=== PATIENT | male | born 1965 | race Caucasian/White ===

== ENCOUNTER → 2017-03-17 | Outpatient (CLI) | payer OTHER ==
[~2017-03-17] MED LIST: METHACHOLINE KIT (J7674) INH ONE
--- NOTE | 2017-03-17 14:32 | PFTRPT ---
Tech: Helena GALINDO RRT Age: 51 Sex: Male Race: Height: 69.00 Inches Weight: 279.00 Lbs BSA: 2.38 Diagnosis: R06.02 METHACHOLINE CHALLENGE REPORT: ORDERING PROVIDER: DONNA Marrero DATE OF SERVICE: 03/17/17 INTERPRETATION: The study was of excellent technical quality. Under protocol, methacholine was administered. At a dose of 0.025 mg (0.125 CDUs), a 25% decline in the FEV1 was noted. No PC20 was calculated. Flow rates did return to baseline post bronchodilator administration. IMPRESSION: Positive methacholine challenge study. MTDD
== END ==
LOC: M CARPUL 13:09
PROVIDERS: ATTEND Nurse Practitioner Adult Health
DX: R06.02 Shortness of breath (principal); R94.2 Abnormal results of pulmonary function studies
CPT/HCPCS: 94070; J7674

== ENCOUNTER 2017-08-03 10:37 | Day surgery (SDC) | payer OTHER ==
[2017-08-03] MEDS ORDERED: NS 1,000 ML IV (11:15)
== END 2017-08-03 12:52 | disposition home or self-care (01) ==
LOC: M OPP 10:37
DX: Z12.11 Encounter for screening for malignant neoplasm of colon (principal); K64.0 First degree hemorrhoids; D12.3 Benign neoplasm of transverse colon; I10 Essential (primary) hypertension; E78.5 Hyperlipidemia, unspecified; K21.9 Gastro-esophageal reflux disease without esophagitis; M17.0 Bilateral primary osteoarthritis of knee; F32.9 Major depressive disorder, single episode, unspecified; F43.10 Post-traumatic stress disorder, unspecified; R06.83 Snoring; R06.02 Shortness of breath; G47.9 Sleep disorder, unspecified; Z86.69 Personal history of other diseases of the nervous system and sense organs; Z79.899 Other long term (current) drug therapy; Z99.89 Dependence on other enabling machines and devices
CPT/HCPCS: 45385

== ENCOUNTER 2021-05-07 13:30 | Inpatient (IN) | payer OTHER ==
[~2021-05-07] VITALS: Ht 175.3 cm; Wt 119.3 kg
[~2021-05-07 13:30] MED LIST changes: +ACET1TAB55 PO; +ADVA115A PO; +D 50CAP PO; +IBUP200T46 PO; +LAMO200T3 PO; +LIPI20TA PO; +LISI20TA33 PO; -METHACHOLINE KIT (J7674) INH ONE; +PROAAER10 INH; +REFR0.1D OU; +VENL150C43 PO; +VENL75CA47 PO
[2021-05-07] MEDS ORDERED: QUET50TA4 PO (14:03)
[2021-05-07] MEDS ORDERED: BUSP10TA PO (14:03)
[2021-05-07] MEDS ORDERED: ATOR80TA59 PO (14:03)
[2021-05-07] MEDS ORDERED: SERTRALINE (14:03)
[2021-05-07 15:01] LABS: AMPHETAMINES LEVEL URINE NEGATIVE (NEGATIVE); BARBITURATES URINE NEGATIVE (NEGATIVE); BENZODIAZEPINES URINE NEGATIVE (NEGATIVE); CANNABINOIDS URINE POSITIVE (NEGATIVE); COCAINE METABOLITE URINE NEGATIVE (NEGATIVE); HEMATOCRIT 46.1 % (42.0-52.0); HEMOGLOBIN 15.2 g/dl (13.5-17.5); MEAN CORPUSCULAR HEMOGLOBIN 27.7 pg (27.0-33.0); MEAN CORPUSCULAR VOLUME 84.1 fl (80.0-96.0); METHADONE URINE NEGATIVE (NEGATIVE); OPIATES URINE NEGATIVE (NEGATIVE); PHENCYCLIDINE URINE NEGATIVE (NEGATIVE); PLATELET COUNT, AUTOMATED 241 10^3/uL (150-450); RED BLOOD COUNT 5.48 10^6/uL (4.30-6.10)
--- OUTSIDE RECORDS SUMMARY | 2021-05-07 15:05 | CCD ---
Author Author [facility] Organization [facility] Address Unknown Phone Unavailable Care Team Providers Care Service Loss Control Consultant Name Role Phone Sarahi, Dillan Unavailable Unavailable Sarahi, Dillan Unavailable Unavailable Sarahi, Dillan Unavailable Unavailable Sarahi, Dillan Unavailable Unavailable Sarahi, Dillan Unavailable Unavailable Sarahi, Dillan Unavailable Unavailable Sarahi, Dillan Unavailable Unavailable Sarahi, Dillan Unavailable Unavailable Sarahi, Dillan Unavailable Unavailable Sarahi, Dillan Unavailable Unavailable Sarahi, Dillan Unavailable Unavailable Sarahi, Dillan Unavailable Unavailable Sarahi, Dillan Unavailable Unavailable Sarahi, Dillan Unavailable Unavailable Sarahi, Dillan Unavailable Unavailable Sarahi, Dillan Unavailable Unavailable Sarahi, Dillan Unavailable Unavailable Re-disclosure Warning The records that you are about to access may contain information from federally-assisted alcohol or drug abuse programs. If such information is present, then the following federally mandated warning applies: This information has been disclosed to you from records protected by federal confidentiality rules (42 CFR part 2). The federal rules prohibit you from making any further disclosure of this information unless further disclosure is expressly permitted by the written consent of the person to whom it pertains or as otherwise permitted by 42 CFR part 2. A general authorization for the release of medical or other information is NOT sufficient for this purpose. The Federal rules restrict any use of the information to criminally investigate or prosecute any alcohol or drug abuse patient.The records that you are about to access may contain highly sensitive health information, the redisclosure of which is protected by Article 27-F of the [facility] Public Health law. If you continue you may have access to information: Regarding HIV / AIDS; Provided by facilities licensed or operated by the [facility] Office of Mental Health; or Provided by the [facility] Office for People With Developmental Disabilities. If such information is present, then the following [facility] mandated warning applies: This information has been disclosed to you from confidential records which are protected by state law. State law prohibits you from making any further disclosure of this information without the specific written consent of the person to whom it pertains, or as otherwise permitted by law. Any unauthorized further disclosure in violation of state law may result in a fine or fpc sentence or both. A general authorization for the release of medical or other information is NOT sufficient authorization for further disc losure. Allergies and Adverse Reactions Type Description Substance Reaction Status Data Source(s ) No Known Allergies No Known Allergies [facility] Family History Family Member Name Family Member Gender Family Member Status Date o f Status Description Data Source(s) Unknown Unknown Problem MEDENT ([facility]) Unknown Male Problem MEDENT ([facility]) () - at age 69 Encounters Encounter Providers Location Date Indications Data Source(s ) Outpatient Attender: Dillan Mcclain 0 11:41:04 AM EDT - 03/12/2020 01:59:00 PM EDT [facility] Patient discharged. Medications No Information Insurance Providers Payer name Policy type / Coverage type Policy ID Covered green party ID Covered green party's relationship to sales Policy Sales Plan Information [facility] [id number] [facility] [id number] [facility] ACTIVE DUTY [id number] [facility] HUMANA - O/P [id number] 18 [id number] [employer] [id number] S [id number] N REGIONAL CLAIMS ROSANGELA -O/P [id number] 18 [id number] [place] [address] Commercial [id number] Self [id number] Region 1 [facility] Commercial [id number] Self [id number] ACTIVE DUTY [id number] SP [id number] N REGIONAL CLAIMS ROSANGELA-PHYSICIAN [id number] 18 [id number] [facility] [id number] [facility] Janalakshmi [id number] [facility] [id number] [facility] Janalakshmi [id number] Self [id number] ADMINSTRATION -O/P [id number] 18 [id number] Problems, Conditions, and Diagnoses Code Display Name Description Problem Type Effective Dates Data Source(s) R99 Ill-defined and unknown cause of mortali ty Ill-defined and unknown cause of mortality Diagnosis 03/12/2020 01:59:00 PM EDT [facility] Surgeries/Procedures No Information Results No Information Social History No Information
[2021-05-07 15:12] LABS: ALT/SGPT 38 U/L (12-78); BLOOD UREA NITROGEN 17 MG/DL (7-18); CALCIUM LEVEL 9.5 MG/DL (8.5-10.1); CARBON DIOXIDE LEVEL 27 MEQ/L (21-32); CHLORIDE LEVEL 109 MEQ/L (98-107); CREATININE FOR GFR 1.13 MG/DL (0.70-1.30); GLOMERULAR FILTRATION RATE > 60.0 (>56); GLUCOSE, FASTING 154 MG/DL (70-100); POTASSIUM SERUM 3.6 MEQ/L (3.5-5.1); SODIUM LEVEL 143 MEQ/L (136-145)
[2021-05-07 15:13] LABS: ACETAMINOPHEN LEVEL < 2.0 UG/ML (10.0-30.0); ALBUMIN 4.1 GM/DL (3.2-5.2); BILIRUBIN,DIRECT 0.2 MG/DL (0.0-0.2); BILIRUBIN,TOTAL 0.7 MG/DL (0.2-1.0); ETHYL ALCOHOL (ETHANOL) 0.006 % (0.000-0.010); SALICYLATE LEVEL < 1.7 MG/DL (5.0-30.0); TOTAL PROTEIN 7.3 GM/DL (6.4-8.2)
[2021-05-07] MEDS ORDERED: QUEtiapine FUMARATE 25 MG TAB PO ONE (17:10)
[2021-05-07] MEDS ORDERED: MULT-90 PO (19:15)
[2021-05-07] MEDS ORDERED: HOME MED LIST COMPLETE! XX SCH (19:15)
[2021-05-07] MEDS ORDERED: ZOLO100T PO (19:15)
[2021-05-07] MEDS ORDERED: RA B1TAB2 PO (19:15)
[2021-05-07] MEDS ORDERED: NATU1TAB5 PO (19:15)
[2021-05-07] MEDS ORDERED: MAALOX 30 ML SUSP *UDC PO PRN (22:05)
[2021-05-07] MEDS ORDERED: MOM 30ML SUSPENSION UDC PO PRN (22:05)
--- OUTSIDE RECORDS SUMMARY | 2021-05-07 22:18 | CCD ---
Author Author [facility] Organization [facility] Address Unknown Phone Unavailable Care Team Providers Care Commercial Roofing Estimator Name Role Phone Sarahi, Dillan Unavailable Unavailable [...] is protected by Article 27-F of the [facility] Public Health law. If you continue you may have access to information: Regarding HIV / AIDS; Provided by facilities licensed or operated by the [facility] Office of Mental Health; or Provided by the [facility] Office for People With Developmental Disabilities. If such information is present, then the following [facility] mandated warning applies: This information has been [...] law may result in a fine or mcc sentence or both. A general authorization for the release of medical or other information is NOT sufficient authorization for further disc losure. Allergies and Adverse Reactions Type Description Substance Reaction Status Data Source(s ) No Known Allergies No Known Allergies [facility] Family History Family Member Name Family Member Gender Family Member Status Date o f Status Description Data Source(s) Unknown Unknown Problem MEDENT ([facility]) Unknown Male Problem MEDENT ([facility]) () - at age 69 Encounters Encounter Providers Location Date Indications Data Source(s ) Outpatient Attender: Dillan Mcclain 0 11:41:04 AM EDT - 03/12/2020 01:59:00 PM EDT [facility] Patient discharged. Medications No Information Insurance Providers Payer name Policy type / Coverage type Policy ID Covered democrat ID Covered democrat's relationship to sales Policy Sales Plan Information [facility] [id number] [facility] [id number] [facility] ACTIVE DUTY [id number] [facility] HUMANA - O/P [id number] 18 [id number] [employer] [id number] S [id number] N REGIONAL CLAIMS ROSANGELA -O/P [id number] 18 [id number] [place] [id number] Commercial [id number] Self [id number] Region 1 [facility] Commercial [id number] Self [id number] ACTIVE DUTY [id number] SP [id number] N REGIONAL CLAIMS ROSANGELA-PHYSICIAN [id number] 18 [id number] [facility] [id number] [facility] [employer] [id number] Self [id number] [facility] [id number] [facility] [id number] Self [id number] ADMINSTRATION -O/P [id number] 18 [id number] Problems, Conditions, and Diagnoses Code Display Name Description Problem Type Effective Dates Data Source(s) R99 Ill-defined and unknown cause of mortali ty Ill-defined and unknown cause of mortality Diagnosis 03/12/2020 01:59:00 PM EDT [facility] Surgeries/Procedures No Information Results No Information Social History No Information
[2021-05-07 23:35] VITALS: BP 148/94
[2021-05-08] MEDS: busPIRone 10 MG TAB PO SCH ×3 (00:47→21:02)
[2021-05-08] MEDS ORDERED: QUEtiapine FUMARATE 50MG TAB PO ONE (01:15)
[2021-05-08 06:29] VITALS: BP 142/90
[2021-05-08] MEDS ORDERED: SERTRALINE 100 MG TAB PO SCH (09:00)
[2021-05-08] MEDS ORDERED: lamoTRIgine 100MG TAB PO SCH (09:00)
[2021-05-08] MEDS: VITAMIN D 1,000 INTERNATIONAL UNITS TABLET PO SCH (09:00)
[2021-05-08] MEDS ORDERED: FLUBLOK(EGG FREE)(QUAD)INFLUENZA VACC 0.5ML SYRINGE 18YRS & OLDER IM ONE (09:00)
[2021-05-08] MEDS ORDERED: ATORVASTATIN 20 MG TAB PO SCH (09:00)
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
[2021-05-08] MEDS: MULTIVITAMINS/MINERALS THERAP 1 TAB PO SCH (09:46)
[2021-05-08] MEDS: QUEtiapine FUMARATE 25 MG TAB PO PRN ×2 (10:19→17:54)
[2021-05-08] MEDS: NEPHRO-VIT TAB (NEPHROCAPS) PO SCH (10:19)
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
[2021-05-08] MEDS ORDERED: ALBUTEROL 90 MCG/ACT 8GM HFA INHALER INH PRN (13:50)
[2021-05-08 17:30] VITALS: BP 129/77
[2021-05-08] MEDS: lamoTRIgine 100MG TAB PO SCH (21:02)
[2021-05-08] MEDS: ATORVASTATIN 20 MG TAB PO SCH (21:02)
[2021-05-08] MEDS: QUEtiapine FUMARATE 50MG TAB PO SCH (21:02)
[2021-05-08] MEDS: SERTRALINE HCL 50 MG TAB PO SCH (21:02)
[2021-05-08] MEDS: ARIPiprazole 2 MG TAB PO SCH (21:02)
[2021-05-08] MEDS: traZODone 50 MG TAB PO PRN (21:45)
[2021-05-09 06:02] VITALS: BP 145/71
[2021-05-09] MEDS: MULTIVITAMINS/MINERALS THERAP 1 TAB PO SCH (08:00)
[2021-05-09] MEDS: NEPHRO-VIT TAB (NEPHROCAPS) PO SCH (08:01)
[2021-05-09] MEDS: busPIRone 10 MG TAB PO SCH ×2 (08:03→21:21)
[2021-05-09] MEDS: ACETAMINOPHEN TAB 650MG DOSE (2X325MG) PO PRN (08:03)
[2021-05-09 08:35] LABS: CHOLESTEROL RISK RATIO 3.5 (<5)
[2021-05-09] MEDS: VITAMIN D 1,000 INTERNATIONAL UNITS TABLET PO SCH (09:00)
--- NOTE | 2021-05-09 10:44 | MHIPNPDOC ---
[facility] Progress Note Progress Note DATE OF SERVICE: 05/09/21 HISTORY: Patient is a 55 -year-old , male, with history of complex PTSD, TBI, MDD, BETTE. "It really started when moved brother up to my house Jun 2020, I was sure he was having a psychotic break, stated he had wolves under porch, he was smoking crystal meth so I let him stay with me, he got confrontational with ASD son and kicked him out in January, since then took any voice or agency from me and she let him stay", is currently living with step daughter, , step son, biological son and mother in law and a 5 y/o grand daughter. Says level of disrespect has pushed him to the edge and had a breakdown when drinking with a "combat bao" and returned home to be yelled at. 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 Reports intrusive memories, hypervigilance, avoids sensory stimuli that remind him of [place] and [place], including grilling certain meats. Per PSA report stress has lead to suicidal thoughts of wanting to hang himself or do CO2 poisoning, states not afraid of , but has fear of pain. States has thoughts/fantasies of stopping aggression from neighbor with aggression including fighting, states "was begging him to punch me so I could claim self defense, but I'm smart enough to know to avoid those who piss me off including my neurologist". "It's only based on confrontation", no targets. VITAL SIGNS: See below. Interval: States that he is doing well on his medications, does not report side effects, no acute physical complaints reported, states he is feeling going to groups and learning coping skills to be helpful, states I am doing better, reports he is working on a song but the guitar was broken, asked to have his guitar brought into use he is here for an extended period of time, reports he is has thoughts of ending his marriage stating that is a significant trigger for his anger and pressor symptoms, either have a choice of hurting her or dying, on further clarification endorses hurting her as leaving the relationship emotionally hurting her. States he is try to get things in order and possibly moved in with his son and will go to outpatient at the [facility]. NEW TEST RESULTS: Triglycerides mildly elevated at 161, otherwise lipid panel within normal limits, and she can diet and exercise, diet consult pending CURRENT MEDICATIONS: See below. MENTAL STATUS EXAMINATION: Patient is a 55-year old male, who is in no acute distress, appears somewhat older than stated age, with kothari and glasses, elevated BMI Speech: Is spontaneous, normal rate and rhythm. Language skills are good. Thought processes including: Linear and logical. Thought content: Endorses fleeting suicidal thoughts, denies this morning. Abstract reasoning, and computation: Good. Description of associations: Normal. Description of abnormal or psychotic thoughts: Denies. Judgment: Improving. Insight: Improving Orientation: X4. Recent and remote memory: Intact. Attention span and concentration: Good. Language: Yoruba. Fund of knowledge: Above average based on interview. Mood: "Doing better" affect: Constricted, stable, mildly dysthymic, appropriate DIAGNOSES: PTSD, complex MDD, recurrent, severe Cannabis use ASSESSMENT: Patient continues to be dysthymic, some improvement on medications, reportedly tolerating Abilify well without side effects. Sleep is improved. Endorses working through coping skills in groups as a helpful means to think about conflicts. Resolved about ending his relationship, as it is a significant source of stress. MANAGEMENT PLAN: Continue medications TIME SPENT: 25 minutes. Vital Signs Vital Signs Date Time Temp Pulse Resp B/P (MAP) Pulse Ox O2 Delivery O2 Flow Rate FiO2 05/09/21 06:02 98.4 67 16 145/71 (95) 97 Room Air Laboratory Data 24H Labs Laboratory Tests 2 05/09/21 07:44: Triglycerides Level 161H, Total Cholesterol 161, LDL Cholesterol 83, Non-HDL Cholesterol (LDL + VLDL) 115, Total HDL Cholesterol 46, Cholesterol/HDL Ratio 3.500 Current Medications Current Medications Medications (Trade) Dose Ordered Sig/Stevo Route PRN Reason Start Time Stop Time Status Last Admin Dose Admin Acetaminophen (Tylenol Tab) 650 mg Q6HP PRN PO HEADACHE or MILD DISCOMFORT 05/07/21 22:05 05/09/21 08:03 Al Hydrox/Mg Hydrox/Simethicone (Mylanta) 30 ml Q4HP PRN PO HEARTBURN/INDIGESTION 05/07/21 22:05 Albuterol Sulfate (Proventil, Ventolin Hfa) 2 puff Q4HP PRN INH SHORTNESS OF BREATH 05/08/21 13:50 Aripiprazole (AbiLIFY) 2 mg QHS PO 05/08/21 21:00 05/08/21 21:02 Atorvastatin Calcium (Lipitor) 40 mg DAILY PO 05/08/21 09:00 05/08/21 09:40 DC Atorvastatin Calcium (Lipitor) 40 mg QHS PO 05/08/21 21:00 05/08/21 21:02 Buspirone HCl (Buspar) 20 mg BID PO 05/07/21 21:00 05/09/21 08:03 Home Med (Home Med List Complete!) ASDIRECTED XX 05/07/21 19:15 05/07/21 19:16 DC Hydroxyzine HCl (Atarax) 50 mg Q6HP PRN PO anxiety 05/07/21 22:05 Lamotrigine (LaMICtal) 200 mg DAILY PO 05/08/21 09:00 05/08/21 09:40 DC Lamotrigine (LaMICtal) 200 mg QHS PO 05/08/21 21:00 05/08/21 21:02 Lisinopril (Prinivil) 20 mg DAILY PO 05/08/21 09:00 05/08/21 09:40 DC Lisinopril (Prinivil) 20 mg QHS PO 05/08/21 21:00 05/08/21 21:01 Magnesium Hydroxide (Milk Of Magnesia) 30 ml DAILYPRN PRN PO CONSTIPATION 05/07/21 22:05 Multivitamins (Theragram-M) 1 tab DAILY PO 05/08/21 09:00 05/09/21 08:00 Quetiapine Fumarate (SEROquel) 25 mg QIDP PRN PO ANXIETY/AGITATION 05/08/21 09:25 05/08/21 17:54 Quetiapine Fumarate (SEROquel) 50 mg QHS PO 05/08/21 21:00 05/08/21 21:02 Sertraline HCl (Zoloft) 50 mg QHS PO 05/08/21 21:00 05/08/21 21:02 Sertraline HCl (Zoloft) 100 mg DAILY PO 05/08/21 09:00 05/08/21 09:26 DC Trazodone HCl (Desyrel) 50 mg QHSP PRN PO INSOMNIA 05/07/21 22:05 05/08/21 21:45 Vitamin B Complex/ Vit C/Folic Acid (Nephro-Philip Rx) 1 tab DAILY PO 05/08/21 09:00 05/09/21 08:01 Vitamin D (Vitamin D) 5,000 units DAILY PO 05/08/21 09:00 Allergies Coded Allergies: No Known Allergies (Unverified , 05/07/21) ARIS ARRIAGA MD May 09, 2021 10:44
[2021-05-09] MEDS: QUEtiapine FUMARATE 25 MG TAB PO PRN (15:33)
[2021-05-09 17:53] VITALS: BP 144/92
[2021-05-09] MEDS: ARIPiprazole 2 MG TAB PO SCH (21:20)
[2021-05-09] MEDS: ATORVASTATIN 20 MG TAB PO SCH (21:21)
[2021-05-09] MEDS: SERTRALINE HCL 50 MG TAB PO SCH (21:21)
[2021-05-09] MEDS: QUEtiapine FUMARATE 50MG TAB PO SCH (21:21)
[2021-05-09] MEDS: lamoTRIgine 100MG TAB PO SCH (21:21)
[2021-05-09] MEDS: traZODone 50 MG TAB PO PRN (23:01)
[2021-05-10] MEDS: QUEtiapine FUMARATE 25 MG TAB PO PRN (04:32)
[2021-05-10 06:43] VITALS: BP 136/78
[2021-05-10] MEDS: VITAMIN D 1,000 INTERNATIONAL UNITS TABLET PO SCH (08:22)
[2021-05-10] MEDS: busPIRone 10 MG TAB PO SCH ×2 (08:22→21:51)
[2021-05-10] MEDS: ACETAMINOPHEN TAB 650MG DOSE (2X325MG) PO PRN (08:22)
[2021-05-10] MEDS: MULTIVITAMINS/MINERALS THERAP 1 TAB PO SCH (08:23)
[2021-05-10] MEDS: PROPRANOLOL 20 MG TAB PO SCH ×2 (10:38→21:50)
[2021-05-10] MEDS: LIDOCAINE 5% (LIDODERM) PATCH TD SCH (10:39)
[2021-05-10] MEDS: NEPHRO-VIT TAB (NEPHROCAPS) PO SCH (11:26)
--- NOTE | 2021-05-10 11:32 | MHIPNPDOC ---
[facility] Progress Note Progress Note DATE OF SERVICE: 05/10/21 HISTORY: Patient is a 55 -year-old , male, with history of complex PTSD, TBI, MDD, BETTE. "It really started when moved brother up to my house Jun 2020, I was sure he was having a psychotic break, stated he had wolves under porch, he was smoking crystal meth so I let him stay with me, he got confrontational with ASD son and kicked him out in January, since then took any voice or agency from me and she let him stay", is currently living with step daughter, , step son, biological son and mother in law and a 5 y/o grand daughter. Says level of disrespect has pushed him to the edge and had a breakdown when drinking with a "combat bao" and returned home to be yelled at. 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 Reports intrusive memories, hypervigilance, avoids sensory stimuli that remind him of [place] and [place], including grilling certain meats. Per PSA report stress has lead to suicidal thoughts of wanting to hang himself or do CO2 poisoning, states not afraid of , but has fear of pain. States has thoughts/fantasies of stopping aggression from neighbor with aggression including fighting, states "was begging him to punch me so I could claim self defense, but I'm smart enough to know to avoid those who piss me off including my neurologist". "It's only based on confrontation", no targets. VITAL SIGNS: See below. Interval: Patient had an incident where he gave guitar to another patient, was redirected by nursing without significant issues, states he understands the process and that he gets impulsively agitated at times when redirected. Understands that the guitar at the discretion of nursing whether it be provided. States enjoys playing his guitar, but in context of the situations anxiety shot up and he took as needed 25 mg Seroquel which helped, denies side effects from medications apart from feeling somewhat restless at night, states he has chronic calf pain due to the labor in the past or cannot take iron supplementation per his outside doctor, reports took trazodone and went immediately to sleep instead of waiting for the medication to cause sedation and was educated on how to take the medication, agrees to continue Abilify as scheduled in the evening, denies and is not observed to have any akathisia, aims scoring = 0. Does report some vague homicidal ideations, "violent thoughts", but states that these thoughts are not directed towards any targets including his or family and that he is processing past traumas that he has not been able to his home environment. Does not endorse suicidal ideation but reports continues to have somewhat low mood which is improving. Denies acute complaints apart from the calf pain, chronic knee pain due to meniscectomy, but states it is a "3 out of 10 which is good" and medications not needed at this time, and having some chronic back pain and is agreeable to starting lidocaine patch. Feels if his mood continues to improve he may be ready to leave next week. Reports having impulsive anger outbursts in context of his TBI, agrees to try propranolol 20 mg twice daily. Aware of side effects including low blood pressure, palpitations and if he has any of these side effects to reported to the nurse. NEW TEST RESULTS: none CURRENT MEDICATIONS: See below. MENTAL STATUS EXAMINATION: Patient is a 55-year old male, who is in no acute distress, appears somewhat older than stated age, with kothari and glasses, elevated BMI, somewhat avoidant eye contact Speech: Is spontaneous, normal rate and rhythm. Language skills are good. Thought processes including: Linear and logical. Thought content: Endorses fleeting suicidal thoughts, denies this morning. Abstract reasoning, and computation: Good. Description of associations: Normal. Description of abnormal or psychotic thoughts: Denies. Judgment: Fair Insight: Good Orientation: X4. Recent and remote memory: Intact. Attention span and concentration: Good. Language: Botswanan. Fund of knowledge: Above average based on interview. Mood: "Continue to be doing better" affect: Constricted, mildly anxious, mildly dysthymic, appropriate DIAGNOSES: PTSD, complex MDD, recurrent, severe Cannabis use ASSESSMENT: Patient continues to be depressed, with improving mood, reports vague homicidal ideations in context of reprocessing past traumas, has been going to groups and taking medications, is agreeable to starting propranolol 20 mg twice daily for impulsivity, anxiety and anger outbursts in context of TBI, also agrees to lidocaine patch for back pain which is chronic and likely muscular, reports normal urination, no fever or signs of infection, pain worsens with muscular movement, also reports when he gets anxious that h he gets some mild shortness of breath which does not change with activity, denies any chest pain or consistent short of breath with activity, states that situations that cause anxiety bring out this somewhat labored breathing, also with the muscle pain which appears to be located on the left latissimus dorsi examination, no flank pain. MANAGEMENT PLAN: Continue medications, start lidocaine patch in the left lower back quadrant for back muscle pain, reports that NSAIDs did help with the pain, start propranolol 20 mg twice daily for anxiety and impulsivity context of TBI, Patient is less reliant on as needed Seroquel. TIME SPENT: 25 minutes. Vital Signs Vital Signs Date Time Temp Pulse Resp B/P (MAP) Pulse Ox O2 Delivery O2 Flow Rate FiO2 05/10/21 10:38 88 146/82 05/10/21 06:43 96.8 16 96 Room Air Current Medications Current Medications Medications (Trade) Dose Ordered Sig/Stevo Route PRN Reason Start Time Stop Time Status Last Admin Dose Admin Acetaminophen (Tylenol Tab) 650 mg Q6HP PRN PO HEADACHE or MILD DISCOMFORT 05/07/21 22:05 05/10/21 08:22 Al Hydrox/Mg Hydrox/Simethicone (Mylanta) 30 ml Q4HP PRN PO HEARTBURN/INDIGESTION 05/07/21 22:05 Albuterol Sulfate (Proventil, Ventolin Hfa) 2 puff Q4HP PRN INH SHORTNESS OF BREATH 05/08/21 13:50 Aripiprazole (AbiLIFY) 2 mg QHS PO 05/08/21 21:00 05/09/21 21:20 Atorvastatin Calcium (Lipitor) 40 mg DAILY PO 05/08/21 09:00 05/08/21 09:40 DC Atorvastatin Calcium (Lipitor) 40 mg QHS PO 05/08/21 21:00 05/09/21 21:21 Buspirone HCl (Buspar) 20 mg BID PO 05/07/21 21:00 05/10/21 08:22 Home Med (Home Med List Complete!) ASDIRECTED XX 05/07/21 19:15 05/07/21 19:16 DC Hydroxyzine HCl (Atarax) 50 mg Q6HP PRN PO anxiety 10/19/21 22:05 Lamotrigine (LaMICtal) 200 mg DAILY PO 05/08/21 09:00 05/08/21 09:40 DC Lamotrigine (LaMICtal) 200 mg QHS PO 05/08/21 21:00 05/09/21 21:21 Lidocaine (Lidoderm Patch) 1 patch DAILY TD 05/10/21 09:00 05/10/21 10:39 Lisinopril (Prinivil) 20 mg DAILY PO 05/08/21 09:00 05/08/21 09:40 DC Lisinopril (Prinivil) 20 mg QHS PO 05/08/21 21:00 05/09/21 21:20 Magnesium Hydroxide (Milk Of Magnesia) 30 ml DAILYPRN PRN PO CONSTIPATION 05/07/21 22:05 Multivitamins (Theragram-M) 1 tab DAILY PO 05/08/21 09:00 05/10/21 08:23 Non-Formulary Medication ( See Comment Field Below ) REMOVE LIDODERM PATCH DAILY@21 XX 05/10/21 21:00 Propranolol HCl (Inderal) 20 mg BID PO 05/10/21 09:00 05/10/21 10:38 Quetiapine Fumarate (SEROquel) 25 mg QIDP PRN PO ANXIETY/AGITATION 05/08/21 09:25 05/10/21 04:32 Quetiapine Fumarate (SEROquel) 50 mg QHS PO 05/08/21 21:00 05/09/21 21:21 Sertraline HCl (Zoloft) 50 mg QHS PO 05/08/21 21:00 05/09/21 21:21 Sertraline HCl (Zoloft) 100 mg DAILY PO 05/08/21 09:00 05/08/21 09:26 DC Trazodone HCl (Desyrel) 50 mg QHSP PRN PO INSOMNIA 05/07/21 22:05 05/09/21 23:01 Vitamin B Complex/ Vit C/Folic Acid (Nephro-Philip Rx) 1 tab DAILY PO 05/08/21 09:00 05/09/21 08:01 Vitamin D (Vitamin D) 5,000 units DAILY PO 05/08/21 09:00 05/10/21 08:22 Allergies Coded Allergies: No Known Allergies (Unverified , 05/07/21) ARIS ARRIAGA MD May 10, 2021 11:32
[2021-05-10] MEDS: hydrOXYzine 50 MG TAB PO PRN (14:17)
[2021-05-10 18:53] VITALS: BP 140/90
[2021-05-10] MEDS: lamoTRIgine 100MG TAB PO SCH (21:45)
[2021-05-10] MEDS: QUEtiapine FUMARATE 50MG TAB PO SCH (21:52)
[2021-05-10] MEDS: ARIPiprazole 2 MG TAB PO SCH (21:52)
[2021-05-10] MEDS: ATORVASTATIN 20 MG TAB PO SCH (21:52)
[2021-05-10] MEDS: **NOTE PATIENT COMMENT** MISC XX SCH (21:53)
[2021-05-10] MEDS: SERTRALINE HCL 50 MG TAB PO SCH (21:53)
[2021-05-10] MEDS: traZODone 50 MG TAB PO PRN (21:54)
[2021-05-11 07:26] VITALS: BP 142/82
[2021-05-11] MEDS: LIDOCAINE 5% (LIDODERM) PATCH TD SCH (08:28)
[2021-05-11] MEDS: PROPRANOLOL 20 MG TAB PO SCH ×2 (08:28→21:57)
[2021-05-11] MEDS: VITAMIN D 1,000 INTERNATIONAL UNITS TABLET PO SCH (08:28)
[2021-05-11] MEDS: MULTIVITAMINS/MINERALS THERAP 1 TAB PO SCH (08:28)
[2021-05-11] MEDS: busPIRone 10 MG TAB PO SCH ×2 (08:28→21:56)
[2021-05-11] MEDS: NEPHRO-VIT TAB (NEPHROCAPS) PO SCH (08:28)
[2021-05-11] MEDS: ACETAMINOPHEN TAB 650MG DOSE (2X325MG) PO PRN (10:57)
--- NOTE | 2021-05-11 11:20 | MHIPNPDOC ---
[facility] Progress Note Progress Note DATE OF SERVICE: 05/11/21 HISTORY: Patient is a 55 -year-old , male, with history of complex PTSD, TBI, MDD, BETTE. "It really started when moved brother up to my house Jun 2020, I was sure he was having a psychotic break, stated he had wolves under porch, he was smoking crystal meth so I let him stay with me, he got confrontational with ASD son and kicked him out in January, since then took any voice or agency from me and she let him stay", is currently living with step daughter, , step son, biological son and mother in law and a 5 y/o grand daughter. Says level of disrespect has pushed him to the edge and had a breakdown when drinking with a "combat bao" and returned home to be yelled at. 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 Reports intrusive memories, hypervigilance, avoids sensory stimuli that remind him of [place] and [place], including grilling certain meats. Per PSA report stress has lead to suicidal thoughts of wanting to hang himself or do CO2 poisoning, states not afraid of , but has fear of pain. States has thoughts/fantasies of stopping aggression from neighbor with aggression including fighting, states "was begging him to punch me so I could claim self defense, but I'm smart enough to know to avoid those who piss me off including my neurologist". "It's only based on confrontation", no targets. VITAL SIGNS: See below. Interval: Patient has been attending groups, understands will likely not be able to use guitar in evenings due to limited staff and that guitar use is at discretion of staff. Patient is jovial and jokes with staff present on interview, states mood is "okay", reports has had time to process past traumas and that he truly no longer feels suicidal, values life and wants to take advantage of remaining years, mood is a 7/10, no medication side effects or acute physical complaints apart from him noticing urinary urgency in context of drinking increased amounts of water with clear, noon-yellow urine. Educated on adequate water intake and agreeable to f/u with outside provider to evaluate if continues. NEW TEST RESULTS: none CURRENT MEDICATIONS: See below. MENTAL STATUS EXAMINATION: Patient is a 55-year old male, who is in no acute distress, appears somewhat older than stated age, with kothari and glasses, elevated BMI, engaged eye contact Speech: Is spontaneous, normal rate and rhythm. Language skills are good. Thought processes including: Linear and logical. Thought content: Denies SI, intent or plan. No HI endorsed. Abstract reasoning, and computation: Good. Description of associations: Normal. Description of abnormal or psychotic thoughts: Denies. Judgment: Fair Insight: Good Orientation: X4. Recent and remote memory: Intact. Attention span and concentration: Good. Language: Divehi. Fund of knowledge: Above average based on interview. Mood: "okay, 01/26" affect: Euthymic, full, mood congruent, laughs, smiles, jokes DIAGNOSES: PTSD, complex MDD, recurrent, severe Cannabis use ASSESSMENT: Patient reports mood sigificantly improved, engaged in groups, plays guitar and feels he will be ready to leave Thursday, now denying suicidal ideation. Likely discharge Thursday. Tolerates medications well. MANAGEMENT PLAN: Continue medications, reports lidocaine patch in the left lower back quadrant for back muscle pain has significantly reduced pain, reports that NSAIDs did help with the pain, continue propranolol 20 mg twice daily for anxiety and impulsivity context of TBI, Patient is less reliant on as needed Seroquel. TIME SPENT: 15 minutes. Vital Signs Vital Signs Date Time Temp Pulse Resp B/P (MAP) Pulse Ox O2 Delivery O2 Flow Rate FiO2 05/11/21 08:28 71 142/82 05/11/21 07:26 96.7 18 96 Room Air Current Medications Current Medications Medications (Trade) Dose Ordered Sig/Stevo Route PRN Reason Start Time Stop Time Status Last Admin Dose Admin Acetaminophen (Tylenol Tab) 650 mg Q6HP PRN PO HEADACHE or MILD DISCOMFORT 05/07/21 22:05 05/11/21 10:57 Al Hydrox/Mg Hydrox/Simethicone (Mylanta) 30 ml Q4HP PRN PO HEARTBURN/INDIGESTION 05/07/21 22:05 Albuterol Sulfate (Proventil, Ventolin Hfa) 2 puff Q4HP PRN INH SHORTNESS OF BREATH 05/08/21 13:50 Aripiprazole (AbiLIFY) 2 mg QHS PO 05/08/21 21:00 05/10/21 21:52 Atorvastatin Calcium (Lipitor) 40 mg DAILY PO 05/08/21 09:00 05/08/21 09:40 DC Atorvastatin Calcium (Lipitor) 40 mg QHS PO 05/08/21 21:00 05/10/21 21:52 Buspirone HCl (Buspar) 20 mg BID PO 05/07/21 21:00 05/11/21 08:28 Home Med (Home Med List Complete!) ASDIRECTED XX 05/07/21 19:15 05/07/21 19:16 DC Hydroxyzine HCl (Atarax) 50 mg Q6HP PRN PO anxiety 05/07/21 22:05 05/10/21 14:17 Lamotrigine (LaMICtal) 200 mg DAILY PO 05/08/21 09:00 05/08/21 09:40 DC Lamotrigine (LaMICtal) 200 mg QHS PO 05/08/21 21:00 05/10/21 21:45 Lidocaine (Lidoderm Patch) 1 patch DAILY TD 05/10/21 09:00 05/11/21 08:28 Lisinopril (Prinivil) 20 mg DAILY PO 05/08/21 09:00 05/08/21 09:40 DC Lisinopril (Prinivil) 20 mg QHS PO 05/08/21 21:00 05/10/21 21:51 Magnesium Hydroxide (Milk Of Magnesia) 30 ml DAILYPRN PRN PO CONSTIPATION 05/07/21 22:05 Multivitamins (Theragram-M) 1 tab DAILY PO 05/08/21 09:00 05/11/21 08:28 Non-Formulary Medication ( See Comment Field Below ) REMOVE LIDODERM PATCH DAILY@21 XX 05/10/21 21:00 05/10/21 21:53 Propranolol HCl (Inderal) 20 mg BID PO 05/10/21 09:00 05/11/21 08:28 Quetiapine Fumarate (SEROquel) 25 mg QIDP PRN PO ANXIETY/AGITATION 05/08/21 09:25 05/10/21 04:32 Quetiapine Fumarate (SEROquel) 50 mg QHS PO 05/08/21 21:00 05/10/21 21:52 Sertraline HCl (Zoloft) 50 mg QHS PO 05/08/21 21:00 05/10/21 21:53 Sertraline HCl (Zoloft) 100 mg DAILY PO 05/08/21 09:00 05/08/21 09:26 DC Trazodone HCl (Desyrel) 50 mg QHSP PRN PO INSOMNIA 05/07/21 22:05 05/10/21 21:54 Vitamin B Complex/ Vit C/Folic Acid (Nephro-Philip Rx) 1 tab DAILY PO 05/08/21 09:00 05/11/21 08:28 Vitamin D (Vitamin D) 5,000 units DAILY PO 05/08/21 09:00 05/11/21 08:28 Allergies Coded Allergies: No Known Allergies (Unverified , 05/07/21) ARIS ARRIAGA MD May 11, 2021 11:20
[2021-05-11 18:38] VITALS: BP 130/84
[2021-05-11] MEDS: hydrOXYzine 50 MG TAB PO PRN (19:32)
[2021-05-11] MEDS: lamoTRIgine 100MG TAB PO SCH (21:56)
[2021-05-11] MEDS: ARIPiprazole 2 MG TAB PO SCH (21:56)
[2021-05-11] MEDS: SERTRALINE HCL 50 MG TAB PO SCH (21:57)
[2021-05-11] MEDS: QUEtiapine FUMARATE 50MG TAB PO SCH (21:57)
[2021-05-11] MEDS: ATORVASTATIN 20 MG TAB PO SCH (21:58)
[2021-05-11] MEDS: traZODone 50 MG TAB PO PRN (21:58)
[2021-05-11] MEDS: **NOTE PATIENT COMMENT** MISC XX SCH (21:59)
[2021-05-12] MEDS: LIDOCAINE 5% (LIDODERM) PATCH TD SCH (09:00)
[2021-05-12] MEDS: VITAMIN D 1,000 INTERNATIONAL UNITS TABLET PO SCH (09:22)
[2021-05-12] MEDS: PROPRANOLOL 20 MG TAB PO SCH ×2 (09:23→20:44)
[2021-05-12] MEDS: busPIRone 10 MG TAB PO SCH ×2 (09:23→20:44)
[2021-05-12] MEDS: MULTIVITAMINS/MINERALS THERAP 1 TAB PO SCH (09:23)
[2021-05-12] MEDS: NEPHRO-VIT TAB (NEPHROCAPS) PO SCH (09:23)
[2021-05-12] MEDS: hydrOXYzine 50 MG TAB PO PRN ×2 (13:54→22:21)
[2021-05-12 18:22] VITALS: BP 135/68
[2021-05-12] MEDS: **NOTE PATIENT COMMENT** MISC XX SCH (20:39)
[2021-05-12] MEDS: ARIPiprazole 2 MG TAB PO SCH (20:44)
[2021-05-12] MEDS: lamoTRIgine 100MG TAB PO SCH (20:45)
[2021-05-12] MEDS: traZODone 50 MG TAB PO PRN (20:45)
[2021-05-12] MEDS: QUEtiapine FUMARATE 50MG TAB PO SCH (20:45)
[2021-05-12] MEDS: SERTRALINE HCL 50 MG TAB PO SCH (20:45)
[2021-05-12] MEDS: ATORVASTATIN 20 MG TAB PO SCH (20:45)
[2021-05-13] MEDS: QUEtiapine FUMARATE 25 MG TAB PO PRN (03:22)
[2021-05-13] MEDS: ACETAMINOPHEN TAB 650MG DOSE (2X325MG) PO PRN ×2 (03:22→09:09)
[2021-05-13] MEDS ORDERED: SERT50TA29 PO (08:57)
[2021-05-13] MEDS ORDERED: ABIL1TAB13 PO (08:57)
[2021-05-13] MEDS ORDERED: HYDR50TA70 PO (08:57)
[2021-05-13] MEDS ORDERED: TRAZ-252 PO (08:57)
[2021-05-13] MEDS ORDERED: QUET50TA4 PO (08:57)
[2021-05-13] MEDS ORDERED: LAMO200T3 PO (08:57)
[2021-05-13] MEDS ORDERED: BUSP10TA PO (08:57)
[2021-05-13] MEDS ORDERED: PROP20TA PO (08:57)
[2021-05-13] MEDS: LIDOCAINE 5% (LIDODERM) PATCH TD SCH (09:00)
[2021-05-13] MEDS: busPIRone 10 MG TAB PO SCH (09:04)
[2021-05-13] MEDS: VITAMIN D 1,000 INTERNATIONAL UNITS TABLET PO SCH (09:04)
[2021-05-13] MEDS: NEPHRO-VIT TAB (NEPHROCAPS) PO SCH (09:04)
[2021-05-13] MEDS: MULTIVITAMINS/MINERALS THERAP 1 TAB PO SCH (09:05)
[2021-05-13 09:07] VITALS: BP 142/80
[2021-05-13] MEDS: PROPRANOLOL 20 MG TAB PO SCH (09:07)
--- NOTE | 2021-05-13 12:44 | MHDSPDOC ---
[facility] Discharge Summary Discharge Summary DATE OF ADMISSION: May 07, 2021 at 22:04 DATE OF DISCHARGE: May 13, 2021 at 10:05 Discharge diagnoses: PTSD, complex MDD, recurrent, severe Cannabis use Interpersonal disputes at home Reason for admission: Patient is a 55 -year-old , male, with history of complex PTSD, TBI, MDD, BETTE. "It really started when moved brother up to my house Jun 2020, I was sure he was having a psychotic break, stated he had wolves under porch, he was smoking crystal meth so I let him stay with me, he got confrontational with ASD son and kicked him out in January, since then took any voice or agency from me and she let him stay", is currently living with step daughter, , step son, biological son and mother in law and a 5 y/o grand daughter. Says level of disrespect has pushed him to the edge and had a breakdown when drinking with a "combat bao" and returned home to be yelled at. Reports history of PTSD in context of 2 deployments, had some "buddies lost in brutal ways". Reports intrusive memories, hypervigilance, avoids sensory stimuli that remind him of [place] and [place], including grilling certain meats. Per PSA report stress has lead to suicidal thoughts of wanting to hang himself or go through with CO2 poisoning leading to admission, states not afraid of , but has fear of pain. States has thoughts/fantasies of stopping aggression from neighbor with aggression including fighting, states "was begging him to punch me so I could claim self defense, but I'm smart enough to know to avoid those who piss me off including my neurologist". "It's only based on confrontation", no targets. Vital signs: See below Consultants involved: See medical H&P by hospitalist Treatment and progress on the unit: [facility] and was afforded the following treatment modalities: 1. Individual therapy 2. Group therapy 3. Medication management 4. Milieu therapy 5. Safe environment Hospital course: [facility] a [facility] legal status. Was medically cleared prior to coming up to the [facility]. Toxicology screen was positive for cannabis. Patient was restarted on home medications including sertraline 50 mg, Seroquel 50 mg, as needed Seroquel 25 mg, trazodone 50 nightly, BuSpar 20 twice daily. 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 Was agreeable to adding on Abilify 2 mg nightly for mood augmentation, which was tolerated well without side effects, also was agreeable to adding propranolol 20 mg twice daily for impulsive anger outbursts. Patient found medications beneficial and tolerated them well. Reported symptomatic improvement of mood, anxiety and PTSD symptoms during stay, also reported going to groups and reprocessing past trauma to be helpful, as he felt unable to do this with the constant interpersonal stressors at home. During stay reported that he was future oriented and wanted to live out the rest of his days, had some questions about the state of his relationship including marriage with and that this would need to be further evaluated and will talk about this with this therapist, as he was not too sure about his long-term mental health living at home with all the family members there. Denies mood, anxiety and intrusive thoughts which improved with treatment. Patient attended groups daily during stay, and became more active playing his guitar. Lidocaine patch was given for back pain, with improvement, but did not feel he needed to be prescribed as he had not been taking the patch and notices back was not bothering him. He reported chronic knee pain in context of meniscectomy, but states that it was only a 3 out of 10 which is good for him and he does not feel he needs taking medications or receive any treatment, will also follow up with outpatient doctor. Patient's symptoms improved with treatment. On day of discharge patient denied depression, anxiety, insomnia, suicidal or homicidal ideations intent or plan, hallucinations, delusions. Patient was discharged home with follow-up. Patient felt safe for discharge. Was offered continued stay on voluntary admission but refused. Common and rare medication side effects were discussed with patient before starting medications, including benefits and alternatives. Discharge assessment: On today's interview patient is alert and oriented, dressed appropriately. Jovial, smiling, engaged in interview and future o riented looking forward to returning home. Hygiene and grooming is well-kept. Smiles on approach and is pleasant and engaged on interview. Denies depression and anxiety. Denies suicidal homicidal ideation, intent or planning. Denies and is not observed with noelle or psychotic symptoms of delusions, hallucinations, bizarre thinking, obsessions, paranoia, ruminations, illogical t houghts, flight of ideas or having poor insight or judgment. Patient has normal mentation, declines further hospitalization on voluntary status and meets criteria for discharge today, patient encouraged to return the hospital if symptoms worsen or change and encouraged to call unit if they feel they need provider's questions to be answered or help with medications or care. Mental status: Patient is a 55-year old male, who is in no acute distress, with kothari and glasses, elevated BMI, engaged eye contact Speech: Is spontaneous, normal rate and rhythm. Language skills are good. Thought processes including: Linear and logical. Thought content: Denies suicidal ideation, intent or plan. Denies homicidal ideation, intent or plan. Abstract reasoning, and computation: Good. Description of associations: Normal. Description of abnormal or psychotic thoughts: Denies. Judgment: Good Insight: Good Orientation: X4. Recent and remote memory: Intact. Attention span and concentration: Good. Language: Hebrew. Fund of knowledge: Above average based on interview. Mood: "Good, 8 out of 10" affect: Euthymic, bright, jovial, full, mood congruent, laughs, smiles, jokes Medications on discharge: -see medication reconciliation: CSSRS on discharge: Wish to be : No nonspecific active suicidal thoughts: No lifetime attempts: 0 interrupted attempts: 0 aborted attempts: 0 preparatory acts or behavior: None Taking into consideration safety state, status, modifiable, non-modifiable risk factors patient is at low risk on discharge for suicide according to [facility] suicide evaluation. PLAN/FOLLOWUP ARRANGEMENTS: Follow Up Care Education Label * Mental Health Appt 1 * Established With This Provider Yes * Therapist * Date May 14, 2021 * Time 10:30 * Address of Clinic or Practice [address] [place] [address] * The amount of time spent in the coordination of care for this patient was approximately 35 minutes. ETOH/Disorder Med Rx ETOH/DRUG DISORDER RX: Offrd @ d/c & pt refused Vital Signs/I&Os Vital Signs Date Time Temp Pulse Resp B/P (MAP) Pulse Ox O2 Delivery O2 Flow Rate FiO2 05/13/21 09:07 84 142/80 05/12/21 18:22 97.5 18 05/12/21 11:00 Room Air 05/11/21 07:26 96 Medications Scheduled Aripiprazole (Abilify) 2 Mg Tablet, 2 MG PO QHS for mood, #7 Atorvastatin Calcium (Atorvastatin Calcium) 80 Mg Tablet, 40 MG PO DAILY, (Reported) Buspirone HCl (Buspirone HCl) 10 Mg Tablet, 20 MG PO BID for anxiety, #14 Cholecalciferol (Vitamin D3) (Vitamin D3) 125 Mcg Tablet, 125 MCG PO DAILY, (Reported) Lamotrigine (Lamotrigine) 200 Mg Tab, 200 MG PO DAILY for mood stabilization, #7 Lisinopril (Lisinopril) 20 Mg Tab, 20 MG PO DAILY, (Reported) Multivitamin (Multivitamin) 1 Each Tablet, 1 TAB PO DAILY, (Reported) Propranolol HCl (Propranolol HCl) 20 Mg Tablet, 20 MG PO BID for anxiety, #14 Quetiapine Fumarate (Quetiapine Fumarate) 50 Mg Tablet, 50 MG PO QHS for sleep, #7 Sertraline HCl (Sertraline HCl) 50 Mg Tablet, 50 MG PO QHS for mood, #7 Vitamin B Complex (Vitamin B Complex) 1 Each Tablet, 1 TAB PO DAILY, (Reported) Scheduled PRN Hydroxyzine HCl (Hydroxyzine HCl) 50 Mg Tablet, 50 MG PO Q6HP PRN for anxiety , #14 Trazodone HCl (Trazodone HCl) 50 Mg Tablet, 50 MG PO QHSP PRN for INSOMNIA, #7 Allergies Coded Allergies: No Known Allergies (Unverified , 05/07/21) ARIS ARRIAGA MD May 13, 2021 12:44
== END 2021-05-13 10:05 | disposition home or self-care (01) | DRG 882 ==
LOC: M ED 13:30 → M ED INP 22:04 → M PSY 23:34
PROVIDERS: ADMIT Student in an Organized Health Care Education/Training Program; ATTEND Student in an Organized Health Care Education/Training Program
DX: F43.10 Post-traumatic stress disorder, unspecified (principal); F33.2 Major depressive disorder, recurrent severe without psychotic features; R45.851 Suicidal ideations; F12.10 Cannabis abuse, uncomplicated; J45.909 Unspecified asthma, uncomplicated; E66.9 Obesity, unspecified; Z68.38 Body mass index [BMI] 38.0-38.9, adult; E78.5 Hyperlipidemia, unspecified; I10 Essential (primary) hypertension; R45.850 Homicidal ideations; M54.50 Low back pain, unspecified; K21.9 Gastro-esophageal reflux disease without esophagitis; Z87.81 Personal history of (healed) traumatic fracture; F41.1 Generalized anxiety disorder; Z81.1 Family history of alcohol abuse and dependence; Z62.810 Personal history of physical and sexual abuse in childhood; Z91.82 Personal history of military deployment; Z20.822 Contact with and (suspected) exposure to COVID-19; Z87.820 Personal history of traumatic brain injury; Z79.899 Other long term (current) drug therapy; Z63.8 Other specified problems related to primary support group

== ENCOUNTER → 2022-01-18 | Outpatient (CLI) | payer OTHER ==
[~2022-01-18] MED LIST changes: +ABIL1TAB13 PO; +ATOR80TA59 PO; +BUSP10TA PO; +HYDR50TA70 PO; +MULT-90 PO; +NATU1TAB5 PO; +PROP20TA PO; +QUET50TA4 PO; +RA B1TAB2 PO; +SERT50TA29 PO; +SERTRALINE; +TRAZ-252 PO; +ZOLO100T PO
== END ==
LOC: M SLEEP 19:44
PROVIDERS: ATTEND Nurse Practitioner Family
DX: G47.33 Obstructive sleep apnea (adult) (pediatric) (principal)